=== PATIENT | female | born 1975 | race Asian ===

== ENCOUNTER 2019-06-04 05:45 | Day surgery (SDC) | payer MEDICAID ==
[2019-06-04] MEDS ORDERED: SOD CHLORIDE 0.9% 1,000 ML IV (06:30)
[2019-06-04] MEDS ORDERED: CEFAZOLIN 1 GM/50 ML (PMX) 50 ML IVPB (06:30)
[2019-06-04] MEDS ORDERED: LIDOCAINE 2% (SDV) 5 ML INJ (07:34)
[2019-06-04] MEDS ORDERED: CEFAZOLIN 1 GM INJ (07:34)
[2019-06-04] MEDS ORDERED: PROPOFOL 20 ML (07:34)
[2019-06-04] MEDS ORDERED: MIDAZOLAM 1 MG/ML 2 ML INJ (07:53)
[2019-06-04] MEDS ORDERED: FENTAnyl 50 MCG/ML VIAL (07:53)
[2019-06-04] MEDS ORDERED: ONDANSETRON 4 MG INJ (08:13)
[2019-06-04] MEDS ORDERED: METOCLOPRAMIDE 10 MG INJ (08:13)
[2019-06-04] MEDS: BUPIVACAINE 0.5% (SDV) 30 ML INJ (08:27)
[2019-06-04] MEDS ORDERED: DIPHENHYDRAMINE 50 MG INJ IV (08:30)
[2019-06-04] MEDS ORDERED: FENTAnyl 50 MCG/ML VIAL IV ×3 (08:30)
[2019-06-04] MEDS ORDERED: OXYCODONE/ACETAMINOPHEN (5/325) TAB PO ×2 (08:30)
[2019-06-04] MEDS ORDERED: HYDROmorphONE 1 MG/5 ML IV SYRINGE IV (08:30)
[2019-06-04] MEDS ORDERED: MEPERIDINE 25 MG INJ IV (08:30)
[2019-06-04] MEDS ORDERED: KETOROLAC 30 MG INJ (08:47)
[2019-06-04] MEDS ORDERED: EPHEDrine 25 MG/5 ML SYG (08:50)
[2019-06-04] MEDS: ONDANSETRON 4 MG INJ IV (09:16)
[2019-06-04] MEDS: HYDROmorphONE 1 MG/5 ML IV SYRINGE IV ×2 (09:16→09:27)
== END 2019-06-04 10:46 | disposition home or self-care (01) ==
LOC: SDS 05:45
DX: D05.12 Intraductal carcinoma in situ of left breast (principal); Z87.891 Personal history of nicotine dependence
CPT/HCPCS: 19120